=== PATIENT | male | born 1960 | race Caucasian/White ===

== ENCOUNTER 2019-05-01 10:04 | Day surgery (SDC) | payer BC ==
[~2019-05-01] VITALS: Ht 182.9 cm; Wt 138.6 kg
[2019-05-01 10:58] VITALS: BP 124/77
[2019-05-01] MEDS ORDERED: QUET25TA5 PO (10:58)
[2019-05-01] MEDS ORDERED: CARV-39 PO (10:58)
[2019-05-01] MEDS ORDERED: BUPR1FIL3 PO (10:58)
[2019-05-01] MEDS ORDERED: ACET-1600 PO (10:58)
[2019-05-01] MEDS ORDERED: RIVA20TA PO (10:58)
[2019-05-01] MEDS ORDERED: GABA800T5 PO (10:58)
[2019-05-01] MEDS ORDERED: LACTATED RINGERS 1,000 ML IV SCH (11:00)
[2019-05-01 11:28] LABS: BASOPHILS # (AUTO) 0.05 x10^3/uL (0-0.1); BASOPHILS % (AUTO) 1 % (0-1); EOSINOPHILS # (AUTO) 0.23 x10^3/uL (0-0.4); EOSINOPHILS % (AUTO) 4 % (1-7); LYMPHOCYTES # (AUTO) 1.75 x10^3/uL (1-3.4); LYMPHOCYTES % (AUTO) 33 % (22-44); MD NO; MEAN CORPUSCULAR HEMOGLOBIN 26.9 pg (27.5-34.5); MEAN CORPUSCULAR HGB CONC 32.5 g/dL (33.2-36.2); MEAN CORPUSCULAR VOLUME 82.8 fL (81-97); MEAN PLATELET VOLUME 7.5 fL (7.4-10.4); MONOCYTES # (AUTO) 0.51 x10^3/uL (0.2-0.8); MONOCYTES % (AUTO) 10 % (2-9); NEUTROPHILS # (AUTO) 2.72 x10^3/uL (1.8-6.8); NEUTROPHILS % (AUTO) 52 % (42-75); PLATELET COUNT 310 x10^3/uL (130-400); RED BLOOD COUNT 4.96 x10^6/uL (4.38-5.82); RED CELL DISTRIBUTION WIDTH 14.7 % (9.4-14.8)
[2019-05-01] MEDS ORDERED: PLEASE ENTER HEIGHT AND WEIGHT MC SCH (11:30)
[2019-05-01 11:42] LABS: ALBUMIN 3.6 g/dL (3.4-5.0); ANION GAP 7 mmol/L (5-15); CALCIUM 9.2 mg/dL (8.5-10.1); CHLORIDE 109 mmol/L (98-107)
[2019-05-01 11:47] LABS: ALANINE AMINOTRANSFERASE 15 U/L (12-78); ALKALINE PHOSPHATASE 60 U/L (45-117); BILIRUBIN,TOTAL 0.9 mg/dL (0.2-1.0); CREATININE 0.67 mg/dL (0.7-1.3); TOTAL PROTEIN 7.3 g/dL (6.4-8.2)
[2019-05-01] MEDS ORDERED: PROPOFOL 10 MG/ML, 50ML ONE (12:14)
[2019-05-01] MEDS ORDERED: ONDANSETRON ODT 8 MG PO PRN (12:30)
[2019-05-01] MEDS ORDERED: DIAZEPAM 5 MG/ML, 2ML IVPush PRN (12:30)
[2019-05-01] MEDS ORDERED: MIDAZOLAM 1 MG/ML, 2ML IV PRN (12:30)
[2019-05-01] MEDS ORDERED: ONDANSETRON 2MG/ML, 2ML IV PRN (12:30)
== END 2019-05-01 13:47 | disposition home or self-care (01) ==
LOC: OUT 10:04
PROVIDERS: ATTEND Internal Medicine Gastroenterology
DX: C20 Malignant neoplasm of rectum (principal); I10 Essential (primary) hypertension; F32.9 Major depressive disorder, single episode, unspecified; F41.9 Anxiety disorder, unspecified; E66.9 Obesity, unspecified; Z68.41 Body mass index [BMI] 40.0-44.9, adult; Z79.01 Long term (current) use of anticoagulants; Z79.899 Other long term (current) drug therapy; Z88.8 Allergy status to other drugs, medicaments and biological substances; Z86.718 Personal history of other venous thrombosis and embolism; Z86.010 Personal history of colon polyps; Z98.890 Other specified postprocedural states; Z80.0 Family history of malignant neoplasm of digestive organs
CPT/HCPCS: 36415; 45341; 80053; 82378; 85025; 93005; J2704; J7120

== ENCOUNTER 2020-08-28 10:02 | Day surgery (SDC) | payer BC ==
[~2020-08-28] VITALS: Ht 185.4 cm; Wt 145.0 kg
[~2020-08-28 10:02] MED LIST: ACET-1600 PO; BUPR1FIL3 PO; CARV-39 PO; GABA800T5 PO; QUET25TA5 PO; RIVA20TA PO
[2020-08-28 10:33] VITALS: BP 153/92
[2020-08-28] MEDS ORDERED: SODIUM CHLORIDE 0.9% 1,000 ML IV SCH (11:00)
[2020-08-28] MEDS ORDERED: LIDOCAINE 1%, 20ML ONE (11:33)
[2020-08-28] MEDS ORDERED: FENTANYL PF 100 MCG/2ML ONE ×2 (11:59→12:28)
[2020-08-28] MEDS ORDERED: NALOXONE 1 MG/ML, 2ML ONE (11:59)
[2020-08-28] MEDS ORDERED: FLUMAZENIL 0.1 MG/1 ML, 5ML ONE (11:59)
[2020-08-28] MEDS ORDERED: MIDAZOLAM 1 MG/ML, 5ML ONE (11:59)
== END 2020-08-28 13:35 | disposition home or self-care (01) ==
LOC: OUT 10:02
PROVIDERS: ATTEND Internal Medicine Hematology & Oncology
DX: Z45.2 Encounter for adjustment and management of vascular access device (principal); C20 Malignant neoplasm of rectum; G89.3 Neoplasm related pain (acute) (chronic); Z79.899 Other long term (current) drug therapy; Z88.5 Allergy status to narcotic agent; Z87.891 Personal history of nicotine dependence; Z82.49 Family history of ischemic heart disease and other diseases of the circulatory system; Z80.0 Family history of malignant neoplasm of digestive organs; Z80.51 Family history of malignant neoplasm of kidney
CPT/HCPCS: 36590; 77001; 99156; 99157; J2250; J3010; J7030; J2310